=== PATIENT | female | born 1995 | race Two or more races ===

== ENCOUNTER 2023-03-11 07:57 | Observation (INO) | payer BC, OTHER ==
[~2023-03-11] VITALS: Ht 165.1 cm; Wt 87.5 kg
[2023-03-11] MEDS ORDERED: ASPI-498 PO (09:42)
[2023-03-11] MEDS ORDERED: PREN-96 PO (09:46)
== END 2023-03-11 10:09 | disposition home or self-care (01) ==
LOC: LDRP 07:57 → UNDOADMOB 07:57 → LDRP 08:01
PROVIDERS: ADMIT Obstetrics & Gynecology; ATTEND Obstetrics & Gynecology
DX: O16.3 Unspecified maternal hypertension, third trimester (principal); Z3A.31 31 weeks gestation of pregnancy
CPT/HCPCS: 59025; 76818; 81002; 94760; G0378

== ENCOUNTER 2023-03-17 16:01 | Observation (INO) | payer BC ==
[~2023-03-17 16:01] MED LIST: ASPI-498 PO; PREN-96 PO
== END 2023-03-17 17:39 | disposition home or self-care (01) ==
LOC: LDRP 16:01
PROVIDERS: ADMIT Obstetrics & Gynecology; ATTEND Obstetrics & Gynecology
DX: O16.3 Unspecified maternal hypertension, third trimester (principal); Z3A.32 32 weeks gestation of pregnancy; Z91.010 Allergy to peanuts; Z91.013 Allergy to seafood
CPT/HCPCS: 59025; 76818; 81002; 94760; G0378

== ENCOUNTER 2023-03-24 16:00 | Observation (INO) | payer BC | END 2023-03-24 17:50 | disposition home or self-care (01) | LOC: LDRP 16:00 → UNDOADMOB 16:00 → LDRP 16:05 → UNDODISOB 17:50 | PROVIDERS: ADMIT Obstetrics & Gynecology; ATTEND Obstetrics & Gynecology | DX: O16.3 Unspecified maternal hypertension, third trimester (principal); O62.9 Abnormality of forces of labor, unspecified; Z91.010 Allergy to peanuts; Z91.013 Allergy to seafood; Z91.018 Allergy to other foods; Z3A.33 33 weeks gestation of pregnancy | CPT/HCPCS: 59025; 76818; 81002; G0378 ==

== ENCOUNTER 2023-03-28 08:00 | Observation (INO) | payer BC | END 2023-03-28 09:56 | disposition home or self-care (01) | LOC: LDRP 08:00 → UNDOADMOB 08:00 → LDRP 08:11 → UNDODISOB 09:56 | PROVIDERS: ADMIT Obstetrics & Gynecology; ATTEND Obstetrics & Gynecology | DX: O10.913 Unspecified pre-existing hypertension complicating pregnancy, third trimester (principal); Z3A.33 33 weeks gestation of pregnancy | CPT/HCPCS: 59025; 76818; 81002; 94760; G0378 ==

== ENCOUNTER 2023-03-31 09:38 | Observation (INO) | payer BC | END 2023-03-31 18:07 | disposition left against medical advice (07) | LOC: LDRP 16:13 | PROVIDERS: ADMIT Obstetrics & Gynecology; ATTEND Obstetrics & Gynecology | DX: O10.913 Unspecified pre-existing hypertension complicating pregnancy, third trimester (principal); Z3A.34 34 weeks gestation of pregnancy | CPT/HCPCS: 59025; 76818; 81002; 94760; G0378 ==

== ENCOUNTER 2023-04-04 08:06 | Observation (INO) | payer BC | END 2023-04-04 10:12 | disposition home or self-care (01) | LOC: LDRP 08:06 → UNDOADMOB 08:06 → LDRP 08:08 | PROVIDERS: ADMIT Obstetrics & Gynecology; ATTEND Obstetrics & Gynecology | DX: O16.3 Unspecified maternal hypertension, third trimester (principal); Z3A.34 34 weeks gestation of pregnancy; Z91.010 Allergy to peanuts; Z91.013 Allergy to seafood; Z91.018 Allergy to other foods | CPT/HCPCS: 59025; 76818; 81002; G0378 ==

== ENCOUNTER 2023-04-08 08:54 | Observation (INO) | payer BC | END 2023-04-08 10:44 | disposition home or self-care (01) | LOC: UNDOADMOB 08:54 → LDRP 08:54 | PROVIDERS: ADMIT Obstetrics & Gynecology; ATTEND Obstetrics & Gynecology | DX: O16.3 Unspecified maternal hypertension, third trimester (principal); Z3A.35 35 weeks gestation of pregnancy; Z79.82 Long term (current) use of aspirin; Z91.010 Allergy to peanuts; Z91.013 Allergy to seafood; Z91.018 Allergy to other foods | CPT/HCPCS: 59025; 76818; 81002; 94760; G0378 ==

== ENCOUNTER 2023-04-11 08:02 | Observation (INO) | payer BC ==
[2023-04-11 10:00] LABS: Basophils # (auto) 0 10 ^3/uL (0-0.2); Basophils % (auto) 0.4 % (0.0-2.0); Eosinophils # (auto) 0.3 10 ^3/uL (0-0.8); Eosinophils % (auto) 2.2 % (0.0-7.0); Hematocrit 42.8 % (36.0-46.0); Hemoglobin 14.5 g/dL (12.2-16.2); Lymphocytes % (auto) 26.3 % (10.0-50.0); Mean Corpuscular Hemoglobin 30.5 pg (28.0-32.0); Mean Corpuscular Hgb Conc. 33.9 g/dL (32.0-36.0); Mean Corpuscular Volume 89.9 fL (80.0-100.0); Monocytes # (auto) 0.8 10 ^3/uL (0-1.3); Monocytes % (auto) 6.5 % (0.0-12.0); Neutrophils # (auto) 7.4 10 ^3/uL (1.6-8.6); Neutrophils % (auto) 64.6 % (37.0-80.0); Red Blood Cells 4.76 10^6/uL (4.0-5.20); Red Cell Distribution Width 13.3 % (11.8-14.3); White Blood Cell 11.5 10^3/uL (4.4-10.8)
[2023-04-11 10:18] LABS: Alanine Aminotransferase 17 U/L (7-40); Alkaline Phosphatase 157 U/L (46-116); Anion Gap 7 (5-15); Aspartate Aminotransferase 19 U/L (13-40); BUN/Creatinine Ratio 10.3 (10.0-20.0); Blood Urea Nitrogen 6 mg/dL (9-23); Calcium 9.2 mg/dL (8.5-10.1); Carbon Dioxide 26 mmol/L (20-30); Chloride 104 mmol/L (98-107); Glucose 73 mg/dL (74-106); Potassium 3.9 mmol/L (3.5-5.1); Sodium 137 mmol/L (136-145)
[2023-04-11 10:19] LABS: Bilirubin, Total 0.5 mg/dL (0.2-1.0); Total Protein 6.3 g/dL (5.7-8.2)
[2023-04-11 10:30] LABS: Urine Bacteria FEW /hpf (None Seen); Urine Blood Negative /uL (Negative); Urine Clarity HAZY (Clear); Urine Color Yellow (Yellow); Urine Hyaline Cast FEW /lpf (0 - 2); Urine Protein, UAD TRACE (Negative); Urine Specific Gravity 1.016 (1.001-1.035); Urine Urobilinogen Normal (Negative); Urine WBC 5 /hpf (0 - 5); Urine pH 7.5 (5.0-8.0)
[2023-04-11 10:36] LABS: Protein, Urine 23.6 mg/dL (0.0-11.9)
[2023-04-11 10:37] LABS: Uric Acid 4.2 mg/dL (3.1-7.8)
[2023-04-11 10:39] LABS: Creatinine, Urine 66.35 mg/dL (30.0-125.0); Urine Protein/Creatinine Ratio 0.36
[2023-04-11 11:01] LABS: INR 0.98 (0.9-1.15); Partial Thromboplastin Time 29.5 SEC (24.5-34.5); Prothrombin Time 10.3 sec (9.3-11.8)
== END 2023-04-11 11:25 | disposition home or self-care (01) ==
LOC: UNDOADMOB 08:02 → LDRP 08:02
PROVIDERS: ADMIT Obstetrics & Gynecology; ATTEND Obstetrics & Gynecology
DX: O16.3 Unspecified maternal hypertension, third trimester (principal); Z3A.35 35 weeks gestation of pregnancy; Z91.010 Allergy to peanuts; Z91.013 Allergy to seafood; Z91.018 Allergy to other foods
CPT/HCPCS: 36415; 59025; 76818; 80053; 81001; 81002; 82570; 84156; 84550; 85025; 85379; 85610; 85730; 94760; G0378

== ENCOUNTER 2023-04-15 08:30 | Observation (INO) | payer BC | END 2023-04-15 09:55 | disposition home or self-care (01) | LOC: UNDOADMOB 08:30 → LDRP 08:30 → UNDODISOB 09:55 | PROVIDERS: ADMIT Obstetrics & Gynecology; ATTEND Obstetrics & Gynecology | DX: O10.913 Unspecified pre-existing hypertension complicating pregnancy, third trimester (principal); Z3A.36 36 weeks gestation of pregnancy | CPT/HCPCS: 59025; 76818; 81002; 94760; G0378 ==

== ENCOUNTER 2023-04-18 13:10 | Observation (INO) | payer BC | END 2023-04-18 14:52 | disposition home or self-care (01) | LOC: LDRP 13:10 | PROVIDERS: ADMIT Obstetrics & Gynecology; ATTEND Obstetrics & Gynecology | DX: O16.3 Unspecified maternal hypertension, third trimester (principal); Z3A.36 36 weeks gestation of pregnancy; Z91.010 Allergy to peanuts; Z91.013 Allergy to seafood; Z91.018 Allergy to other foods | CPT/HCPCS: 59025; 76818; 81002; 94760; G0378 ==

== ENCOUNTER 2023-04-22 08:17 | Observation (INO) | payer BC | END 2023-04-22 10:12 | disposition home or self-care (01) | LOC: LDRP 08:17 → UNDOADMOB 08:17 → LDRP 08:19 | PROVIDERS: ADMIT Obstetrics & Gynecology; ATTEND Obstetrics & Gynecology | DX: O16.3 Unspecified maternal hypertension, third trimester (principal); Z3A.37 37 weeks gestation of pregnancy; Z91.010 Allergy to peanuts; Z91.013 Allergy to seafood; Z91.018 Allergy to other foods | CPT/HCPCS: 59025; 76818; 81002; 94760; G0378 ==

== ENCOUNTER 2023-04-25 12:10 | Observation (INO) | payer BC | END 2023-04-25 14:25 | disposition home or self-care (01) | LOC: UNDOADMOB 12:10 → LDRP 12:10 | PROVIDERS: ADMIT Obstetrics & Gynecology; ATTEND Obstetrics & Gynecology | DX: O16.3 Unspecified maternal hypertension, third trimester (principal); O62.9 Abnormality of forces of labor, unspecified; Z3A.37 37 weeks gestation of pregnancy; Z91.010 Allergy to peanuts; Z91.013 Allergy to seafood; Z91.018 Allergy to other foods | CPT/HCPCS: 59025; 76818; 81002; G0378 ==

== ENCOUNTER 2023-04-30 13:06 | Observation (INO) | payer BC | END 2023-04-30 14:28 | disposition home or self-care (01) | LOC: LDRP 13:06 → UNDOADMOB 13:06 → LDRP 13:09 → UNDODISOB 14:28 | PROVIDERS: ADMIT Obstetrics & Gynecology; ATTEND Obstetrics & Gynecology | DX: O16.3 Unspecified maternal hypertension, third trimester (principal); O62.9 Abnormality of forces of labor, unspecified; Z3A.38 38 weeks gestation of pregnancy; Z91.010 Allergy to peanuts; Z91.013 Allergy to seafood; Z91.018 Allergy to other foods | CPT/HCPCS: 59025; 76818; 81002; 94760; G0378 ==

== ENCOUNTER 2023-05-06 11:04 | Inpatient (IN) | payer BC ==
[~2023-05-06] VITALS: Ht 167.6 cm; Wt 104.3 kg
[2023-05-06] MEDS ORDERED: BUTORPHANOL TARTRATE 2 MG/1 ML VIAL IV PRN ×2 (11:45)
[2023-05-06] MEDS ORDERED: PENICILLIN G POT 5MIL/D5 50ML 50 ML IV ONE (11:45)
[2023-05-06 12:14] LABS: Basophils # (auto) 0 10 ^3/uL (0-0.2); Basophils % (auto) 0.4 % (0.0-2.0); Eosinophils # (auto) 0.1 10 ^3/uL (0-0.8); Eosinophils % (auto) 1.3 % (0.0-7.0); Hematocrit 41.3 % (36.0-46.0); Hemoglobin 13.8 g/dL (12.2-16.2); Lymphocytes # (auto) 1.8 10 ^3/uL (0.4-5.4); Lymphocytes % (auto) 16.4 % (10.0-50.0); Mean Corpuscular Hemoglobin 30.1 pg (28.0-32.0); Mean Corpuscular Hgb Conc. 33.5 g/dL (32.0-36.0); Monocytes # (auto) 0.7 10 ^3/uL (0-1.3); Monocytes % (auto) 6.3 % (0.0-12.0); Neutrophils # (auto) 8.3 10 ^3/uL (1.6-8.6); Neutrophils % (auto) 75.6 % (37.0-80.0); Red Blood Cells 4.58 10^6/uL (4.0-5.20); Red Cell Distribution Width 13.7 % (11.8-14.3)
[2023-05-06 12:28] LABS: Albumin 3.7 g/dL (3.2-4.8); Alkaline Phosphatase 188 U/L (46-116); Anion Gap 5 (5-15); Aspartate Aminotransferase 19 U/L (13-40); Blood Urea Nitrogen 7 mg/dL (9-23); Calcium 9.2 mg/dL (8.5-10.1); Carbon Dioxide 26 mmol/L (20-30); Chloride 107 mmol/L (98-107); Glucose 78 mg/dL (74-106); Potassium 4.1 mmol/L (3.5-5.1); Sodium 138 mmol/L (136-145)
[2023-05-06 12:29] LABS: Bilirubin, Total 0.4 mg/dL (0.2-1.0); Total Protein 6.2 g/dL (5.7-8.2)
[2023-05-06] MEDS: LACTATED RINGER'S 1,000 ML IV SCH (12:31)
[2023-05-06 12:32] LABS: Partial Thromboplastin Time 28.6 SEC (24.5-34.5); Prothrombin Time 10.5 sec (9.3-11.8)
[2023-05-06 12:39] LABS: Alanine Aminotransferase < 9 U/L (7-40)
[2023-05-06 12:58] LABS: Protein, Urine < 6.0 mg/dL (0.0-11.9)
[2023-05-06 12:59] LABS: Urine Bacteria NONE SEEN /hpf (None Seen); Urine Blood Negative /uL (Negative); Urine Clarity Clear (Clear); Urine Protein, UAD Negative (Negative); Urine Urobilinogen Normal (Negative); Urine WBC 1 /hpf (0 - 5); Urine pH 6.5 (5.0-8.0)
[2023-05-06 13:00] LABS: Amphetamine Screen, Urine Neg (NEGATIVE); Barbiturate Scree,Urine Neg (NEGATIVE)
[2023-05-06 13:01] LABS: Benzodiazephine Screen, Urine Neg (NEGATIVE); Cannabinoid Screen, Urine Neg (NEGATIVE); Cocaine Screen, Urine Neg (NEGATIVE); Creatinine, Urine 41.72 mg/dL (30.0-125.0); Opiate Scree,Urine Neg (NEGATIVE); Phencyclidine Screen, Urine Neg (NEGATIVE); Urine Color Straw (Yellow); Urine Protein/Creatinine Ratio 0.14
[2023-05-06] MEDS ORDERED: ONDANSETRON HCL 4 MG/2 ML VIAL IV PRN (13:15)
[2023-05-06] MEDS: miSOPROStol 50 MCG per PRE-CUT 1/2 TAB PO PRN (13:51)
[2023-05-06] MEDS ORDERED: PENICILLIN G POTASSIUM 2,500,000 UNITS in D5W 5% 50 ML IV SCH (15:45)
[2023-05-06] MEDS ORDERED: CARBOPROST TROMETHAMINE 250 MCG/1ML VIAL IM ONE (23:15)
[2023-05-06] MEDS ORDERED: METHYLERGONOVINE MALEATE 0.2 MG/ML AMP IM ONE (23:15)
[2023-05-07 06:06] LABS: RPR Non Reactive (Non Reactive)
[2023-05-07] MEDS: PHISODERM TOP SOLN 240ML BTL TOP PRN (08:07)
[2023-05-07] MEDS: DERMOPLAST 60ML BOTTLE TOP PRN (08:07)
[2023-05-07] MEDS: WITCH HAZEL-GLYCERIN PAD TOP PRN (08:07)
[2023-05-07] MEDS ORDERED: LACT. RINGERS/OXYTOCIN 20UNITS 500 ML IV ONE ×2 (09:30→10:00)
[2023-05-07] MEDS ORDERED: LABETALOL HCL 5 MG/ML 4ML SYRINGE IV PRN (09:30)
[2023-05-07] MEDS ORDERED: TERBUTALINE SULFATE 1 MG/ML 1ML VIAL SC PRN (14:00)
[2023-05-07] MEDS: LACT. RINGERS/OXYTOCIN 20UNITS 1,000 ML IV SCH (14:56)
[2023-05-07] MEDS: MAGNESIUM SULFATE 100 ML IV ONE ×2 (19:18→19:42)
[2023-05-07] MEDS ORDERED: LABETALOL HCL 5 MG/ML 4ML SYRINGE IV ONE (19:28)
[2023-05-07] MEDS: LABETALOL HCL 5 MG/ML 4ML SYRINGE IV ONE ×2 (19:29→19:30)
[2023-05-07] MEDS: LACT. RINGERS/OXYTOCIN 20UNITS 500 ML IV ONE ×2 (19:44→20:00)
[2023-05-07] MEDS: LIDOCAINE 2%HCL (LOCAL ANESTH.) INJ 20ML MDV IJ PRN (19:54)
[2023-05-07 21:00] VITALS: BP 129/75; PULSE 90; RESP 16; RESP 18; TEMP 98.2; O2SAT 97; O2SAT 99
[2023-05-07 22:00] VITALS: BP 147/82; PULSE 91; RESP 16; RESP 18; TEMP 98.2; O2SAT 97; O2SAT 99
[2023-05-07 23:00] VITALS: BP 140/81; PULSE 84; RESP 18; O2SAT 98; O2SAT 99
[2023-05-08] VITALS (22 sets, daily range): BP systolic 121–153; BP diastolic 65–100; PULSE 75–105; RESP 16–20; TEMP 97.8–98.8; O2SAT 97–100
[2023-05-08] MEDS ORDERED: ACETAMINOPHEN 325 MG TAB PO PRN (00:30)
[2023-05-08] MEDS ORDERED: ONDANSETRON ODT 4 MG TAB PO PRN (00:30)
[2023-05-08] MEDS: IBUPROFEN 800 MG TAB PO SCH (06:00)
[2023-05-08 06:23] LABS: Basophils # (auto) 0 10 ^3/uL (0-0.2); Basophils % (auto) 0.3 % (0.0-2.0); Eosinophils # (auto) 0.1 10 ^3/uL (0-0.8); Eosinophils % (auto) 0.4 % (0.0-7.0); Hematocrit 41.1 % (36.0-46.0); Hemoglobin 13.8 g/dL (12.2-16.2); Lymphocytes # (auto) 2.3 10 ^3/uL (0.4-5.4); Mean Corpuscular Hemoglobin 30.3 pg (28.0-32.0); Mean Corpuscular Hgb Conc. 33.7 g/dL (32.0-36.0); Mean Corpuscular Volume 90.1 fL (80.0-100.0); Monocytes % (auto) 7.1 % (0.0-12.0); Neutrophils # (auto) 10.1 10 ^3/uL (1.6-8.6); Neutrophils % (auto) 75.2 % (37.0-80.0); Red Blood Cells 4.56 10^6/uL (4.0-5.20); Red Cell Distribution Width 13.4 % (11.8-14.3); White Blood Cell 13.5 10^3/uL (4.4-10.8)
[2023-05-08] MEDS: hydrALAZINE HCL 20 MG/ML VL IV PRN (06:31)
[2023-05-08 06:39] LABS: INR 0.98 (0.9-1.15); Partial Thromboplastin Time 30.2 SEC (24.5-34.5); Prothrombin Time 10.3 sec (9.3-11.8)
[2023-05-08 06:41] LABS: Alanine Aminotransferase 10 U/L (7-40); Albumin 3.4 g/dL (3.2-4.8); Alkaline Phosphatase 169 U/L (46-116); Anion Gap 9 (5-15); Aspartate Aminotransferase 19 U/L (13-40); BUN/Creatinine Ratio 10.6 (10.0-20.0); Bilirubin, Total 0.6 mg/dL (0.2-1.0); Blood Urea Nitrogen < 5 mg/dL (9-23); Carbon Dioxide 23 mmol/L (20-30); Chloride 105 mmol/L (98-107); Glucose 96 mg/dL (74-106); Potassium 3.7 mmol/L (3.5-5.1); Sodium 137 mmol/L (136-145); Total Protein 5.7 g/dL (5.7-8.2)
[2023-05-08 07:26] LABS: Protein, Urine < 6.0 mg/dL (0.0-11.9)
[2023-05-08 07:29] LABS: Creatinine, Urine 21.86 mg/dL (30.0-125.0); Urine Protein/Creatinine Ratio 0.27
[2023-05-08] MEDS: MAGNESIUM SULFATE 40MG/ML 1,000 ML IV SCH (07:31)
[2023-05-08] MEDS: LABETALOL HCL 200 MG TAB PO SCH (10:00)
[2023-05-08] MEDS ORDERED: IBUPROFEN 800 MG TAB PO PRN (19:00)
[2023-05-08 19:06] LABS: Treponema pallidum Ab (FTA-Ab) Non Reactive (Non Reactive)
[2023-05-08] MEDS: DOCUSATE SOD 100 MG CAP PO SCH (21:56)
[2023-05-09 03:15] VITALS: BP 118/70; PULSE 67; RESP 16; TEMP 98.6; O2SAT 97
[2023-05-09 07:10] VITALS: BP 129/79; PULSE 80; RESP 17; TEMP 98.8; O2SAT 97
[2023-05-09] MEDS ORDERED: LABE300T3 PO (08:53)
[2023-05-09] MEDS: TETANUS-DIPTH-ACEL PERTUSSIS 0.5ML SYR Tdap IM ONE (09:36)
[2023-05-09 11:45] VITALS: BP 119/67; PULSE 87; RESP 16; TEMP 98.7; O2SAT 95
== END 2023-05-09 12:45 | disposition home or self-care (01) | DRG 807 ==
LOC: UNDOADMIN 11:04 → LDRP 11:04
PROVIDERS: ADMIT Obstetrics & Gynecology; ATTEND Obstetrics & Gynecology
PROC: 10E0XZZ Delivery of Products of Conception, External Approach (ICD-10-PCS; principal; 2023-05-07)
PROC: 0HQ9XZZ Repair Perineum Skin, External Approach (ICD-10-PCS; 2023-05-07)
DX: O14.94 Unspecified pre-eclampsia, complicating childbirth (principal); Z37.0 Single live birth; O70.0 First degree perineal laceration during delivery; O16.4 Unspecified maternal hypertension, complicating childbirth; Z3A.39 39 weeks gestation of pregnancy; Z91.010 Allergy to peanuts; Z91.013 Allergy to seafood; Z91.018 Allergy to other foods
CPT/HCPCS: 36415; 59025; 59409; 80053; 80307; 81001; 81002; 82570; 83735; 84156; 84550; 85025; 85610; 85730; 86592; 86850; 86900; 86901; 90715; 94760; 94762; 96360; 96361; 96365; 96366; 96374; G0378; J2590; J3490; J7060